=== PATIENT | male | born 1980 | race Caucasian/White ===

== ENCOUNTER 2019-04-07 13:47 | Emergency (ER) | payer SELFPAY ==
[~2019-04-07] VITALS: Ht 185.4 cm; Wt 79.0 kg
[2019-04-07 14:09] VITALS: BP 140/88
--- NOTE | 2019-04-07 14:23 | NUR ---
FIRST CONTACT WITH PT. PRESENTS VIA TRAIGE WITH RIGHT LOWER MOUTH DENTAL PAIN X 7 DAYS. KNOWN CRACKED TOOTH. DENIES FEVER. NO THROAT SWELLING HAS NO SEEN A DENTIST YET UNEMPLOYED. PT'S AOX4. RESPS EVEN AND UNLABORED.
[2019-04-07] MEDS ORDERED: HYDROcodone/APAP 5/325 TABLET ONE (14:40)
--- NOTE | 2019-04-07 14:46 | NUR ---
Patient given discharge instructions and they have confirmed that they understand the instructions. Patient ambulatory with steady gait.
--- NOTE | 2019-04-07 14:46 | NUR ---
PT REFUSED [facility]CO D/T URINE TEST AT WORK IN A FEW DAYS. PA NOTIFIED.
[2019-04-07] MEDS ORDERED: HYDROcodone/APAP 5/325 TABLET PO ONE (15:00)
== END 2019-04-07 14:48 | disposition home or self-care (01) ==
LOC: ED 14:42
DX: K02.9 Dental caries, unspecified (principal)
CPT/HCPCS: 99283

== ENCOUNTER 2020-01-31 01:39 | Emergency (ER) | payer MEDICAID, OTHER ==
[~2020-01-31] VITALS: Ht 188 cm; Wt 74.7 kg
--- NOTE | 2020-01-31 01:52 | NUR ---
PT AMBULATES FROM TRIAGE TO ROOM WITH STEADY GAIT.
--- NOTE | 2020-01-31 02:10 | NUR ---
PT IN GOWN IN [facility]. PT ATTACHED TO VS MONITORS AT THIS TIME. RHINA. ASTER LONG, AT FOR PT HISTORY AND ASSESSMENT. PT EDUCATED ON ER PROCESS AND POC AND VERBALIZES UNDERSTANDING. CALL LIGHT IS WITHIN REACH OF PT AT THIS TIME.
[2020-01-31 02:39] LABS: BASOPHILS % (AUTO) 1 % (0-1); EOSINOPHILS % (AUTO) 1 % (1-7); LYMPHOCYTES % (AUTO) 24 % (22-44); MEAN CORPUSCULAR HEMOGLOBIN 29.6 pg (27.5-34.5); MEAN CORPUSCULAR HGB CONC 33.5 g/dL (33.2-36.2); MEAN PLATELET VOLUME 10.2 fL (7.4-10.4); MONOCYTES % (AUTO) 8 % (2-9); NEUTROPHILS % (AUTO) 66 % (42-75); PLATELET COUNT 208 x10^3/uL (130-400); RED BLOOD COUNT 5.33 x10^6/uL (4.38-5.82); RED CELL DISTRIBUTION WIDTH 13.6 % (9.4-14.8)
[2020-01-31 02:42] LABS: MD NO
[2020-01-31 02:48] LABS: ALANINE AMINOTRANSFERASE 51 U/L (12-78); ALBUMIN 4.4 g/dL (3.4-5.0); ANION GAP 5 mmol/L (5-15); CALCIUM 9.4 mg/dL (8.5-10.1); CHLORIDE 112 mmol/L (98-107); CREATININE 1.07 mg/dL (0.7-1.3)
[2020-01-31 02:51] LABS: ALKALINE PHOSPHATASE 79 U/L (45-117); BILIRUBIN,TOTAL 0.6 mg/dL (0.2-1.0); TOTAL PROTEIN 7.7 g/dL (6.4-8.2)
[2020-01-31 03:01] LABS: MICROSCOPIC NOT IND
[2020-01-31 04:32] VITALS: BP 119/74
== END 2020-01-31 04:34 | disposition home or self-care (01) ==
LOC: ED 03:56
DX: S39.011A Strain of muscle, fascia and tendon of abdomen, initial encounter (principal); R10.31 Right lower quadrant pain; R11.0 Nausea; X58.XXXA Exposure to other specified factors, initial encounter; Y93.89 Activity, other specified; Y92.89 Other specified places as the place of occurrence of the external cause; Y99.8 Other external cause status
CPT/HCPCS: 36415; 76870; 80053; 81003; 85025; 99284